=== PATIENT | female | born 1955 | race Caucasian/White ===

== ENCOUNTER 2023-03-07 20:22 | Emergency (ER) | payer BC, SELFPAY ==
[2023-03-07 20:26] VITALS: BP 243/77; PULSE 83; RESP 18; TEMP 36.9; O2SAT 97
--- NOTE | 2023-03-07 20:30 | DI.RAD_ITS ---
Exam(s) XR HUMERUS RT XR SHOULDER RT COMPLETE 2+V EXAM: XR SHOULDER RT COMPLETE 2+V and XR humerus RT CLINICAL HISTORY: Fall. TECHNIQUE: 2D digital imaging was performed of the right shoulder. Five images were obtained. AP, Grashey, and Y views were obtained. COMPARISON: There are no priors for comparison. FINDINGS: BONES: There is an acute fracture involving the proximal humerus. The fracture involves the surgical neck and the greater tuberosity. The fracture appears impacted. No bony destructive lesion is seen . There is an old ORIF of the distal humerus. JOINTS: There is inferior subluxation of the humeral head relative to the glenoid. There are degener ative changes seen at the acromioclavicular joint. SOFT TISSUE: There is soft tissue swelling in the lateral shoulder. No radiopaque foreign body. IMPRESSION: 1. Comminuted impacted and displaced fracture involving the surgical neck and greater tuberosity of t he right humerus. 2. Inferior subluxation of the humeral head at the glenohumeral joint. DATA REPOSITORY: RADIATION DOSE DELIVERED:
--- NOTE | 2023-03-07 20:45 | ED.GENADUL_ITS ---
Discharge Plan Disposition Patient Disposition: Home Condition: Stable Discharge Details Clinical Impression: Fracture of humeral head, right, closed Primary Care Provider: Nancy,Local ED Provider: Cindy Lynn Home Meds and New Rx's Prescriptions: No Action methotrexate sodium 2.5 MG tablet 15 mg PO Q7D Patient Comments: not taking folic acid 1 MG tablet 1 tab PO QAM Patient Comments: not taking hydrocodone-acetaminophen 1 TAB tablet 1 tab PO Q4H Qty: 20 0RF Discharge Instructions Instructions: Scapular Fracture (ED) Additional Instructions: The xrays show a fracture of your humeral head. Please follow up with Orthopedic surgery in 3-4 days. Wear the sling at all times other than to bathe. Ice. Please take Tylenol or Ibuprofen with food every 4-6 hours as needed for pain and swelling. Referrals: Kian Briseno MD [ [facility] STAFF PHYSICIAN] - 2 days Medical Decision Making 67-year-old female presents to the ER with a chief complaint of right shoulder and upper arm pain after a fall down 1 step prior to arrival. Distal CMS intact. She presents with her arm in a sling and a splint. XR shoulder and Humerus ordered XR shows humeral head fracture. Discussed result with patient who verbalizes understanding, discussed home care and follow up with Orthopedics. Verbalized understanding. Spoke with Dr. Jacobo who was able to personally view the images, he recommends Sling and Ortho follow up. This text was generated using [email or web address] dictation system, please disregard any oddities of phrase or misspellings. HPI General Mode of arrival: ambulatory . Date/Time Provider Initiated Documentation: 03/07/23 20:40 . Limitations to Documentation: no limitations . Information obtained by: patient, RN notes reviewed and old records reviewed . HPI Narrative: 67-year-old female presents to the ER with a chief complaint of right shoulder and upper arm pain after a fall down 1 step prior to arrival. Distal CMS intac t. She presents with her arm in a sling and a splint. Related Data Home Medications Medication Instructions Recorded Confirmed folic acid 1 mg tablet 1 tab PO QAM 12/16/14 12/16/14 hydrocodone 5 mg-acetaminophen 325 1 tab PO Q4H #20 tabs 12/16/14 mg tablet methotrexate sodium 2.5 mg tablet 15 mg PO Q7D 12/16/14 12/16/14 Previous Rx's Medication Instructions Recorded hydrocodone 5 mg-acetaminophen 325 1 tab PO Q4H #20 tabs 12/16/14 mg tablet Allergies Allergy/AdvReac Type Severity Reaction Status Date / Time amoxicillin AdvReac Unverified 03/07/23 20:32 General Stated Complaint: Orthopedic POLO: 3 Review of Systems All systems reviewed & are unremarkable except as noted in HPI and below Musculoskeletal Musculoskeletal: Reports as per HPI and Reports arthralgias PFSH All Active Problems (Updated 03/07/23 @ 21:54 by Cindy Lynn NP) Fracture of humeral head, right, closed (Acute) Social History Smoking/Tobacco Use Status: Never Smoking risk assessment performed?: Yes Drug use: Never Substance use type: does not use Do you feel safe at home: Yes Do you feel safe in your relationship?: Yes Course Vital Signs Vital signs: Vital Signs Temperature 36.9 C 03/07/23 20:26 Pulse 83 03/07/23 20:26 Respiratory Rate 18 03/07/23 20:26 Blood Pressure 243/77 H 03/07/23 20:26 Pulse Oximetry 97 03/07/23 20:26 Temperature 36.9 C 03/07/23 20:26 Temperature Source Oral 03/07/23 20:26 Pulse 83 03/07/23 20:26 Respiratory Rate 18 03/07/23 20:26 Respiratory Effort Normal 03/07/23 20:30 Blood Pressure 243/77 H 03/07/23 20:26 Blood Pressure Position Sitting 03/07/23 20:26 Pulse Oximetry 97 03/07/23 20:26 Oxygen Delivery Method Room Air 03/07/23 20:26 Oxygen Flow Rate 0 03/07/23 20:26 Pain Level 5 03/07/23 20:26
--- NOTE | 2023-03-07 21:30 | DI.VRAD_ITS ---
PROCEDURE INFORMATION: Exam: XR Right Shoulder Exam date and time: 03/07/2023 8:58 PM Age: 67 years old Clinical indication: Injury or trauma; Fall; Blunt trauma (contusions or hematomas); Shoulder; Right TECHNIQUE: Imaging protocol: Radiologic exam of the right shoulder. Views: 2 or more views. COMPARISON: No relevant prior studies available. FINDINGS: Bones/joints: Displaced fracture of the humeral head and neck. Subluxation of the humeral head inferiorly at the glenoid. Severe AC joint degenerative disease. No scapular fracture visible. Soft tissues: No acute soft tissue changes. No soft tissue gas. No foreign body. IMPRESSION: 1. Comminuted and displaced fracture of the right humeral head and neck. 2. Inferior subluxation of the humeral head at the glenohumeral joint Dictated and Authenticated by: Sj Lepe MD. Ordering:ANTONY White MD
--- NOTE | 2023-03-07 21:31 | DI.VRAD_ITS ---
PROCEDURE INFORMATION: Exam: XR Right Humerus Exam date and time: 03/07/2023 9:02 PM Age: 67 years old Clinical indication: Injury or trauma; Fall; Blunt trauma (contusions or hematomas); Arm, upper; Right TECHNIQUE: Imaging protocol: Radiologic exam of the right humerus. Views: 2 or more views. COMPARISON: CR XR SHOULDER RT COMPLETE 2+V 03/07/2023 8:58 PM FINDINGS: Bones/joints: Comminuted fracture of the right humeral head and neck. Displaced. Previous distal humeral fracture repair with plate and screws. No acute features of the previous repair site. Severe AC joint degenerative disease. Soft tissues: Soft tissue swelling of the lateral shoulder region. No gas. No foreign body. IMPRESSION: 1. Comminuted and displaced right humeral head and neck fracture. 2. Previous distal right humeral fracture repair site is unremarkable. 3. Soft tissue swelling consistent with contusion along the lateral shoulder. Dictated and Authenticated by: Sj Lepe MD. Ordering:ANTONY White MD
== END 2023-03-07 22:40 | disposition home or self-care (01) ==
PROVIDERS: Emergency Provider Registered Nurse Emergency
DX: S42.221A 2-part displaced fracture of surgical neck of right humerus, initial encounter for closed fracture (principal); W10.8XXA Fall (on) (from) other stairs and steps, initial encounter; Y93.01 Activity, walking, marching and hiking
CPT/HCPCS: 99283; 73030; 73060

== ENCOUNTER 2023-03-24 15:23 | Outpatient (CLI) | payer BC, SELFPAY ==
--- NOTE | 2023-03-24 11:30 | DI.RAD_ITS ---
Exam(s) XR SHOULDER RT COMPLETE 2+V EXAM: XR SHOULDER RT COMPLETE 2+V INDICATION: fx/pain. COMPARISON: CR,XR XR HUMERUS RT from 03/07/2023 CR,XR XR SHOULDER RT COMPLETE 2+V from 03/07/[address] UPPER EXTREMITY RT WO from 03/10/2023 TECHNIQUE: 2D digital imaging was performed. Two views. FINDINGS: There has been no change in the alignment of the humeral head fracture. There has been some increase in healing. The humeral head is again noted to be inferiorly subluxed in relation to the glenoid. DATA REPOSITORY: RADIATION DOSE DELIVERED:
== END 2023-03-24 15:24 | disposition home or self-care (01) ==
LOC: DIORS 15:24
PROVIDERS: Visit Provider Physician Assistant
DX: S42.291D Other displaced fracture of upper end of right humerus, subsequent encounter for fracture with routine healing (principal); X58.XXXD Exposure to other specified factors, subsequent encounter
CPT/HCPCS: 73030